=== PATIENT | female | born 1975 | race American Indian/Alaskan Native ===

== ENCOUNTER 2019-09-06 07:59 | Observation (INO) | payer OTHER ==
--- NOTE | 2019-08-31 09:15 | History and Physical Report ---
History of Present Illness Date of examination: 08/31/19 Date of admission: 09/06/2019 Chief complaint: heavy painful periods History of present illness: Visit Type: Pre-Op CC: pre op. History of Present Illness: pt presents for pre op visit: LAVH, Bilateral salpingectomy................................................................... ...Myra Singh August 31, 2019 9:13 AM All risk/benefits/alternatives were d/w pt and questions were addressed and answered. Consents signed and placed on the chart. Vital Signs: Patient Profile: 44 Years Old Female LMP: 08/11/2019 Height: 61.0 inches (154.94 cm) Weight: 153 pounds BMI: 28.91 BP sittin / 88 (left arm) Menstrual History: LMP (date): 08/11/2019 Current Method of Contraception: BTL Date of Last Pap Smear: 11/04/2018 Past History : 5 Term Births: 3 Premature Births: 1 Living Children: 3 Para: 4 Mult. Births: 0 Prev : 3 Aborta: 1 Elect. Ab: 1 Spont. Ab: 0 Ectopics: 0 # 1 Delivery date: 09/28/1996 Delivery type: EAB Comments: year known, no complications # 2 Delivery date: 05/01/2006 labor: no Delivery type: Anesthesia type: epidural Delivery location: [facility] Sex: Male Comments: 28 wks IUFD # 3 Delivery date: 10/13/2007 Weeks Gestation: 39 labor: no Delivery type: Anesthesia type: spinal Delivery location: [facility] Sex: Female weight: 6-5 Name: Kandy Comments: pcs d/t myomectomy, no complications # 4 Delivery date: 04/06/2009 Weeks Gestation: 39 Delivery type: Delivery location: [facility] Sex: male weight: 6.88 Name: Sukhwinder Comments: Treated with Lovenox during # 5 Delivery date: 09/28/2012 Weeks Gestation: 38 Delivery type: Delivery location: [place] [facility] Sex: Male weight: 8-4 Name: Chris Comments: With BTL 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 of genital herpes: yes Partner hx. of genital herpes: no Rash/viral illness since LMP: no Hx of STD: hsv Active Medications (reviewed today): IRON () VITAMINS D () Current Allergies (reviewed today): * BACTRIM (Critical) Past Medical History: Reviewed history from 02/27/2012 and no changes required: fibroids antiphospholipd syndrome- on lovanx last Past Surgical History: Reviewed history from 05/27/2019 and no changes required: myomectomy (04/06/2009) x3 last with BTL Liposuction (2012) Tubal Ligation Family History Summary: Reviewed history Last on 05/27/2019 and no changes required:08/31/2019 General Comments - FH: FH fibroids Family History of Diabetes--pgm No Family History of Breast Cancer No Family History of Colon Cancer No Family History of Hypertension No Family History of Ovarvian Cancer Social History: Reviewed history from 10/02/2016 and no changes required: Patient is no e/t/d Smoking History: Patient has never smoked. Risk Factors: Smoked Tobacco Use: Never smoker Smokeless Tobacco Use: Never Drug use: no HIV high-risk behavior: no Alcohol use: yes Exercise: yes Seatbelt use: 100 % PAP Smear History: Date of Last PAP Smear: 11/04/2018 Review of Systems General Denies fever, chills, sweats, anorexia, fatigue, weakness, malaise, weight loss and sleep disorder. Denies nausea, vomiting, headache, swelling of legs, abdominal pain, vaginal discharge, vaginal bleeding and contractions. Complains of menorrhagia, abnormal vaginal bleeding and painful periods. Denies vaginal discharge, incontinence, dysuria, hematuria, urinary frequency, amenorrhea, pelvic pain, genital sores, decreased libido, painful sex, urinary urgency, hot flashes, vaginal dryness, vaginal itching and vaginal odor. CV Denies chest pains, palpitations, syncope, dyspnea on exertion, orthopnea, PND and peripheral edema. Resp Denies cough, dyspnea at rest, excessive sputum, hemoptysis, wheezing and pleurisy. GI Denies nausea, vomiting, diarrhea, constipation, change in bowel habits, abdominal pain, melena, hematochezia, jaundice, gas/bloating, indigestion/heartburn, dysphagia and odynophagia. Endo Denies cold intolerance, heat intolerance, polydipsia, polyphagia, polyuria and unusual weight change. Breast Denies left breast lump, right breast lump, nipple discharge, bloody discharge from nipple, breast pain, abnormal mammogram and breast enlargement. MS Denies back pain, joint pain, joint swelling, muscle cramps, muscle weakness, stiffness, arthritis, sciatica, restless legs, leg pain at night and leg pain with exertion. Derm Denies rash, itching, dryness and suspicious lesions. Neuro Denies paralysis, paresthesias, headache, seizures, tremors, vertigo, t ransient blindness, frequent falls, frequent headaches and difficulty walking. Psych Denies depression, anxiety, irritability and mood swings. Eyes Denies blurring, diplopia, irritation, discharge, vision loss, eye pain and photophobia. ENT Denies earache, ear discharge, tinnitus, decreased hearing, nasal congestion, nosebleeds, sore throat and hoarseness. Allergy Denies urticaria, allergic rash, hay fever and recurrent infections. Heme Denies abnormal bruising, bleeding and enlarged lymph nodes. [Labs In-House] Physical Exam Appearance: well developed, well nourished, no acute distress Other Exams Lungs: no rales, rhonchi, or wheezes Heart: S1, S2, no murmur, rub, or gallop Abdomen: soft, non-tender, no masses, bowel sounds normal Extremities: normal alignment, no joint enlargement, crepitus, masses or tenderness; normal tone and strength Genitourinary Exam Comments: deferred until EUA Past History Past Medical History: other (antiphospholipid antibody syndrome) Past Surgical History: section (x3), other (BTL, liposuction) GEODETIC ADVISOR History: other (see hpi) Family/Genetic History: other (see hpi) Social history: no significant social history, Review of Systems All systems: negative - Physical Exam Cardiovascular: Normal S1, Normal S2 Lungs: Positive: Clear to auscultation, Normal air movement Abdomen: Positive: normal appearance, soft. Negative: distention, tenderness, guarding Genitourinary (Female): Positive: other (deferred) Extremities: Positive: normal. Negative: tenderness, edema Results All other labs normal. Assessment and Plan - Patient Problems (1) Menorrhagia with regular cycle Status: Acute Plan to address problem: -to OR for LAVH with BS -Risk, benefits and alternatives were d/wpt and questions were addressed and answered. -consents signed and given to pt to bring to pre op appointment at hospital. (2) Secondary dysmenorrhea Status: Acute
[2019-08-31 11:11] LABS: Basophils % (Auto) 1.2 % (0.0-1.8); Eosinophils % (Auto) 1.1 % (0.0-4.3); Hematocrit 38.7 % (30.3-42.9); Hemoglobin 12.9 gm/dl (10.1-14.3); Lymphocytes # (Auto) 1.4 K/mm3 (1.2-5.4); Lymphocytes % (Auto) 36.2 % (13.4-35.0); Mean Corpuscular HGB Conc 33 % (30-34); Mean Corpuscular Volume 93 fl (79-97); Monocytes # (Auto) 0.4 K/mm3 (0.0-0.8); Monocytes % (Auto) 11.6 % (0.0-7.3); Platelet Count 261 K/mm3 (140-440); Red Blood Count 4.18 M/mm3 (3.65-5.03); Red Cell Distribution Width 14.1 % (13.2-15.2)
--- NOTE | 2019-08-31 11:21 | Anesthesia Consultation ---
Anesthesia Consult and Med Hx Date of service: 09/06/19 - Airway Anesthetic Teeth Evaluation: Good ROM Head & Neck: Adequate Mental/Hyoid Distance: Adequate Mallampati Class: Class II Intubation Access Assessment: Good - Pulmonary Exam CTA: Yes - Cardiac Exam Cardiac Exam: RRR - Pre-Operative Health Status ASA Pre-Surgery Classification: ASA1 Proposed Anesthetic Plan: General Nerve Block: TAP post op if converts to open - Pulmonary Hx Smoking: No Hx Respiratory Symptoms: No - Cardiovascular System Hx Hypertension: No Hx Heart Attack/AMI: No - Central Nervous System CVA: No - Gastrointestinal Hx Gastroesophageal Reflux Disease: No - Endocrine Hx Renal Disease: No Hx Liver Disease: No Hx Insulin Dependent Diabetes: No Hx Non-Insulin Dependent Diabetes: No Hx Thyroid Disease: No - Hematic Hx Anemia: Yes (no hx transfusions) - Other Systems Hx Obesity: No - Additional Comments Anesthesia Medical History Comments: No hx anesthetic complications. Consented for postop TAP block if procedure converts to open.
[2019-08-31 11:30] LABS: BUN/Creatinine Ratio 17; Blood Urea Nitrogen 10 mg/dL (7-17); Calcium 9.2 mg/dL (8.4-10.2); Hemolysis Index 21
[~2019-09-06 07:59] MED LIST: BUPIVACAINE/PF (0.5%) 5 MG/1 ML 30 ML VIAL INFILTRATI ONE; GABAPENTIN 300 MG CAP PO NR; LACTATED RINGERS 1,000 ML IV SCH; ceFAZolin/Water 2 GM/20 ML 2 GM/20 ML SYRINGE IV NR
[2019-09-06] MEDS ORDERED: ACETAMINOPHEN 500 MG TAB PO NR (09:30)
[2019-09-06] MEDS ORDERED: ONDANSETRON 4 MG/2 ML INJ IV PRN ×2 (09:37→14:08)
--- NOTE | 2019-09-06 09:38 | Anesthesia Day of Surgery ---
Anesthesia Day of Surgery - Day of Surgery Patient Examined: Yes Patient H&P Reviewed: Yes Patient is NPO: Yes
[2019-09-06] MEDS: MIDAZOLAM 2 MG/2 ML INJ IV NR ×2 (09:55→10:44)
[2019-09-06] MEDS ORDERED: METHYLENE BLUE 50 MG/10 ML AMP ONE (09:56)
[2019-09-06] MEDS ORDERED: VASOPRESSIN 20 UNIT/1 ML INJ ONE (09:56)
[2019-09-06] MEDS ORDERED: SODIUM CHLORIDE 0.9% 100 ML ONE (09:56)
[2019-09-06] MEDS ORDERED: BUPIVACAINE/PF (0.5%) 5 MG/1 ML 30 ML VIAL INFILTRATI ONE (09:56)
[2019-09-06] MEDS ORDERED: NEOSTIGMINE 10MG/10 ML INJ MDV ONE (10:00)
[2019-09-06] MEDS ORDERED: PROPOFOL 200 MG/20 ML VIAL IV ONE (10:00)
[2019-09-06] MEDS ORDERED: ROCURONIUM 50 MG/5 ML INJ IV ONE (10:00)
[2019-09-06] MEDS ORDERED: fentaNYL 250 MCG/5 ML INJ ONE (10:00)
[2019-09-06] MEDS ORDERED: KETAMINE/STERILE WATER 50 MG/ML SYRINGE ONE (10:00)
[2019-09-06] MEDS ORDERED: ESMOLOL 100 MG/10 ML INJ IV ONE (10:00)
[2019-09-06] MEDS ORDERED: LIDOCAINE MPF (2%) 20 MG/1 ML VIAL 5 ML ONE (10:00)
[2019-09-06] MEDS ORDERED: GLYCOPYRROLATE 0.4 MG/2 ML INJ ONE (10:00)
[2019-09-06] MEDS ORDERED: dexAMETHasone 20 MG/5 ML VIAL ONE (10:00)
[2019-09-06] MEDS ORDERED: ONDANSETRON 4 MG/2 ML INJ ONE (10:00)
[2019-09-06] MEDS ORDERED: CITRIC ACID-SOD CITRATE 500 ML IV ONE (11:22)
[2019-09-06] MEDS ORDERED: SODIUM CHLORIDE 0.9% IRRIG SOLN 2000 ML IR ONE (11:52)
[2019-09-06] MEDS ORDERED: SODIUM CHLORIDE 0.9% 100 ML IVPB IV ONE (12:31)
[2019-09-06] MEDS ORDERED: VASOPRESSIN 20 UNIT/1 ML INJ IM ONE (12:31)
[2019-09-06] MEDS ORDERED: HYDROmorphone 1 MG/1 ML INJ ONE ×2 (12:54→15:42)
[2019-09-06] MEDS ORDERED: fentaNYL 100 MCG/2 ML INJ ONE (13:23)
[2019-09-06] MEDS ORDERED: ACETAMINOPHEN 325 MG TAB PO PRN (14:08)
--- NOTE | 2019-09-06 14:18 | Operative Report ---
Operative Report Operative Report: Date of procedure: 09/06/2019 Pre-operative diagnosis: Menorrhagia Dysmenorrhea Post-operative diagnosis: Same Procedure name(s): Laparoscopic assisted vaginal hysterectomy Left salpingectomy Surgeon: Shara Mina MD Lamina Searcher: Dr. Angela Garcia Anesthesia: Gen. endotracheal anesthesia EBL: 450 mL Urine output: 150 mL of clear urine out at the end of the procedure Fluids: 1300 mL Cell Saver: 225 milliliters Findings: Grossly normal ovaries bilaterally. Enlarged uterus likely adenomyos is present. Right fallopian tube was not seen in its entirety therefore salpingectomy was not done. Left fallopian tube was seen clearly and salpingectomy was done. Indications: Patient with a history of menorrhagia and dysmenorrhea. Patient desired definitive therapy. Patient was consented for hysterectomy and any other indicated procedures. As well as for salpingectomy. All risks benefits and alternatives were discussed with the patient. Consents were signed and placed on the chart. Procedure: Patient was taken to the operating room where she was placed under general endotracheal anesthesia. . She was then prepped and draped in sterile fashion. Love catheter was placed at this time It was at this point that the medium V care uterine manipulator was placed inside of the uterus after the uterus was sounded to approximately 10 cm. Attention was then turned to the umbilicus in which a supraumbilical incision was made. Under direct visualization the 5 mm trocar was placed inside the peritoneum the peritoneum was then insufflated. As at this point that the laparoscopic portion of the procedure was performed. 1 lateral and 1 suprabubic 5 mm ports were also placed under direct visualization. Using the tripolar instrument the upper pedicles were cauterized and transected to the including round ligament with excellent hemostasis noted bilaterally. Attention was then turned vaginally. A weighted speculum was placed into the vagina and the cervix was grasped with a single-tooth tenaculum 2. The cervix was then injected circumferentially with Pitressin. The cervix was then circumferentially incised with the scalpel and the bladder dissected off of the pubovesical cervical fascia anteriorly with a sponge stick and Metzenbaum scissors. The same procedure was performed posteriorly and the posterior cul-de-sac was entered into sharply without difficulty. At this point a Paras Clamp was placed over the uterosacral ligaments on either side. These were then transected and suture ligated with 0 Vicryl. Hemostasis was assured. The cardinal ligaments were then clamped on both sides transected and suture ligated in similar fashion. The uterine arteries were then serially clamped with Paras clamps transected and suture ligated on both sides. Excellent hemostasis was visualized. After it was clear that the uterus had been completely from all pedicles the uterus was removed vaginally intact with cervix intact. The vaginal cuff angles were closed with figure of 8 stitches of 0 Vicryl on both sides. The peritoneum was incorporated in the stitching of the vaginal cuff. A series of interrupted figure of 8 sutures using 0 Vicryl were used to close the entire vaginal cuff. Excellent hemostasis was noted. The vagina was then irrigated copiously. Attention was then turned laparoscopically at which time. Again all pedicles were noted to be hemostatic. Shannan was placed along the vaginal cuff and upper pedicles. Excellent hemostasis was noted. All instruments were then removed from the abdomen and the vagina. All gas was released from the abdomen. The abdominal incisions were closed using 4-0 Monocryl. All of the abdominal incisions were injected with Marcaine without epi. Patient tolerated the procedure well sponge lap and needle counts were all correct 3 the patient was taken to the recovery room awake and in stable condition.
[2019-09-06] MEDS ORDERED: KETOROLAC 30 MG/1 ML INJ ONE (15:22)
[2019-09-06] MEDS: KETOROLAC 30 MG/1 ML INJ IV SCH ×2 (15:22→22:15)
[2019-09-06] MEDS: HYDROmorphone 1 MG/1 ML INJ IV PRN ×2 (15:43→15:55)
[2019-09-06] MEDS: ceFAZolin/NS 1 GM/50 ML 1 GM/50 ML BAG IV SCH (17:30)
[2019-09-06] MEDS: MORPHINE 2 MG/1 ML INJ IV PRN (17:40)
--- NOTE | 2019-09-06 17:45 | Progress Note ---
Assessment and Plan - Patient Problems (1) Menorrhagia with regular cycle Current Visit: No Status: Acute (2) Secondary dysmenorrhea Current Visit: No Status: Acute (3) S/P laparoscopic assisted vaginal hysterectomy (LAVH) Current Visit: Yes Status: Acute Plan to address problem: -DOING WELL -ROUTINE POST OP CARE -ADAT Subjective Date of service: 09/06/19 Principal diagnosis: POD#0 s/p LAVH, ANTHONY,LS Interval history: Pt doing well. Findings of procedure were d/w pt and questions were addressed and answered. Pt states pain is well controlled at this time. Objective - Constitutional Vitals: Vital Signs - 12hr 09/06/19 09/06/19 09/06/19 09:04 14:20 14:25 Temperature 99.2 F 97 F L Pulse Rate 83 89 92 H Respiratory 20 12 16 Rate Blood Pressure 119/77 142/87 142/80 O2 Sat by Pulse 100 100 100 Oximetry 09/06/19 09/06/19 09/06/19 14:30 14:35 14:45 Temperature Pulse Rate 89 79 69 Respiratory 11 L 12 11 L Rate Blood Pressure 133/82 137/90 152/83 O2 Sat by Pulse 100 100 100 Oximetry 09/06/19 09/06/19 09/06/19 15:00 15:15 15:22 Temperature 97.2 F L Pulse Rate 79 80 Respiratory 12 13 12 Rate Blood Pressure 147/82 156/81 O2 Sat by Pulse 100 100 Oximetry 09/06/19 09/06/19 09/06/19 15:30 15:43 15:45 Temperature Pulse Rate 75 65 Respiratory 112 H 12 11 L Rate Blood Pressure 159/86 128/80 O2 Sat by Pulse 100 100 Oximetry 09/06/19 09/06/19 09/06/19 15:52 15:54 15:55 Temperature Pulse Rate Respiratory 20 12 12 Rate Blood Pressure O2 Sat by Pulse Oximetry 09/06/19 09/06/19 16:00 17:40 Temperature Pulse Rate 66 Respiratory 12 20 Rate Blood Pressure 131/86 O2 Sat by Pulse 100 Oximetry General appearance: Present: no acute distress - Respiratory Respiratory effort: normal Respiratory: bilateral: CTA - Breasts Breasts: deferred - Gastrointestinal General gastrointestinal: Present: soft, non-tender, non-distended Rectal Exam: deferred - Genitourinary Female genitourinary: deferred - Neurologic Neurologic: CNII-XII intact, moves all extremities - Psychiatric Psychiatric: appropriate mood/affect - Labs CBC & Chem 7: 08/31/19 10:40 08/31/19 10:40 Medications & Allergies - Medications Allergies/Adverse Reactions: Allergies sulfamethoxazole [From Bactrim] Allergy (Verified 08/31/19 10:04) Unknown trimethoprim [From Bactrim] Allergy (Verified 08/31/19 10:04) Unknown Home Medications: Home Medications Medication Instructions Recorded Confirmed Last Taken Type Ergocalciferol [Vitamin D2] 1 cap PO QWEEK 08/31/19 08/31/19 2 Weeks Ago History ~08/23/19 Ferrous Sulfate [Iron 325 MG] 325 mg PO DAILY 08/31/19 08/31/19 2 Weeks Ago History ~08/23/19 Docusate Sodium [Colace] 100 mg PO BID PRN #60 capsule 09/06/19 Unknown Rx Ibuprofen [Motrin 800 MG tab] 800 mg PO Q8HR PRN #30 tablet 09/06/19 Unknown Rx oxyCODONE /ACETAMINOPHEN [Percocet 1 tab PO Q4HR #30 tab 09/06/19 Unknown Rx 5/325] Active Medications: Generic Name Dose Route Start Last Admin Trade Name Freq PRN Reason Stop Dose Admin Acetaminophen 650 mg 09/06/19 14:08 Tylenol PO Q4H PRN Pain, Mild (1-3) Acetaminophen/Hydrocodone Bitart 2 each 09/07/19 08:00 Neola 5/325 PO Q4HR PRN Pain, Moderate (4-6) Hydromorphone HCl 0.5 mg 09/06/19 09:37 09/06/19 15:55 Dilaudid IV 09/06/19 20:00 0.5 mg Q10MIN PRN Administration Pain , Severe (7-10) Lactated Ringer's 1,000 mls @ 100 mls/hr 09/06/19 06:00 09/06/19 09:40 Lactated Ringers IV 100 mls/hr DIRECT BLANKA Administration Cefazolin Sodium 1 gm in 50 mls @ 100 mls/hr 09/06/19 18:00 09/06/19 17:30 Ancef/Ns 1 Gm/50 Ml IV 09/07/19 02:29 100 mls/hr Q8H BLANKA Administration Protocol Ketorolac Tromethamine 30 mg 09/06/19 15:00 09/06/19 15:22 Toradol IV 09/11/19 14:59 30 mg Q6H BLANKA Administration Morphine Sulfate 2 mg 09/06/19 14:08 09/06/19 17:40 Morphine IV 09/07/19 08:00 2 mg Q4H PRN Administration Pain, Moderate (4-6) Ondansetron HCl 4 mg 09/06/19 14:08 Zofran IV Q8H PRN Nausea And Vomiting
--- NOTE | 2019-09-06 17:49 | Post Anesthesia Evaluation ---
- Post Anesthesia Evaluation Patient Participated: Yes Airway Patent: Yes Stable Respiratory Function: Yes Nausea/Vomiting: No Temp > 96.8F: Yes Pain Manageable: Yes Adequeate Hydration: Yes Anesthesia Complications: No Block Receding Appropriately: Not Applicable Patient on Ventilator: No
[2019-09-07] MEDS: MORPHINE 2 MG/1 ML INJ IV PRN (00:28)
[2019-09-07] MEDS: ceFAZolin/NS 1 GM/50 ML 1 GM/50 ML BAG IV SCH (01:31)
[2019-09-07 04:10] LABS: Hemoglobin 11.8 gm/dl (10.1-14.3)
[2019-09-07] MEDS: KETOROLAC 30 MG/1 ML INJ IV SCH (06:56)
[2019-09-07] MEDS ORDERED: HYDROcodone/ACETAMINOPHEN 5-325 MG TAB PO PRN (08:00)
--- NOTE | 2019-09-07 09:04 | Progress Note ---
Assessment and Plan - Patient Problems (1) Menorrhagia with regular cycle Current Visit: No Status: Acute (2) Secondary dysmenorrhea Current Visit: No Status: Acute (3) S/P laparoscopic assisted vaginal hysterectomy (LAVH) Current Visit: Yes Status: Acute Plan to address problem: -routine post op care -d/c home this pm when tolerates regular diet and spontaneously voids. Subjective - Subjective Date of service: 09/07/19 Principal diagnosis: POD#1 s/p LAVH, ANTHONY,LS Interval history: Pt doing well stating that she is passing gas and tolerated a regular diet over night. The reed was removed this am at 0700 with good UOP charted while reed was in place. Pt desires d/c home. Advised will d/c home when spotaneously voids and tolerates regular diet. Patient reports: appetite normal, pain well controlled, flatus, no dizzy ambulation Objective - Vital Signs Latest vital signs: Vital Signs Temp Pulse Resp BP Pulse Ox 09/07/19 05:25 98.7 F 89 20 115/71 98 09/07/19 01:15 98.9 F 90 20 121/66 99 09/06/19 20:15 97.9 F 82 18 146/89 100 09/06/19 17:40 20 09/06/19 16:00 66 12 131/86 100 09/06/19 15:55 12 09/06/19 15:54 12 09/06/19 15:52 20 09/06/19 15:45 65 11 L 128/80 100 09/06/19 15:43 12 09/06/19 15:30 75 112 H 159/86 100 09/06/19 15:22 12 09/06/19 15:15 97.2 F L 80 13 156/81 100 09/06/19 15:00 79 12 147/82 100 09/06/19 14:45 69 11 L 152/83 100 09/06/19 14:35 79 12 137/90 100 09/06/19 14:30 89 11 L 133/82 100 09/06/19 14:25 92 H 16 142/80 100 09/06/19 14:20 97 F L 89 12 142/87 100 09/06/19 09:04 99.2 F 83 20 119/77 100 Intake and Output 09/06/19 09/07/19 09/07/19 22:59 06:59 14:59 Intake Total 50 480 Output Total 490 1500 Balance -440 -1020 Intake: IV 50 ANCEF/NS 1 GM/50 ML 1 gm 50 In 50 ml @ 100 mls/hr IV Q8H [facility] Rx#:[id number] Oral 240 Intake, Free Water 240 Output: Urine 490 1500 Indwelling Catheter 700 Uretheral (Reed) 245 Void 800 Other: Total, Intake Amount 240 Total, Output Amount 700 Voiding Method Indwelling Catheter - Exam Breasts: Present: normal Cardiovascular: Present: Regular rate, Normal S1, Normal S2 Lungs: Present: Clear to auscultation, Normal air movement Abdomen: Present: normal appearance, soft, normal bowel sounds. Absent: distention, tenderness, guarding Uterus: Present: other (abscent) Extremities: Present: normal. Absent: tenderness, edema Deep Tendon Reflex Grade: Normal +2
--- NOTE | 2019-09-07 09:07 | Discharge Summary ---
Providers - Providers Date of Admission: 09/06/19 14:09 Date of discharge: 09/07/19 Attending physician: DAISHA CHOUDHURY Primary care physician: ANA LAURA RODRIGUEZ Hospitalization Reason for admission: other (LAVH WITH BS) Procedure: other (LAVH WITH RS ANTHONY) Procedure details: SEE OP NOTE Incision: normal, dry, intact (open to air) Hospital course: Pt admitted for above stated procedure. Procedure was not complicated. Pt had had routine post op care that also has not been complicated. Will d/c home when tolerates regular diet and spontaneously voids. Condition at discharge: Good Disposition: DC-01 TO HOME OR SELFCARE - Discharge Diagnoses (1) Menorrhagia with regular cycle Status: Acute (2) Secondary dysmenorrhea Status: Acute (3) S/P laparoscopic assisted vaginal hysterectomy (LAVH) Status: Acute Plan - Discharge Medications Prescriptions: Docusate Sodium [Colace] 100 mg PO BID PRN #60 capsule PRN Reason: Constipation Ibuprofen [Motrin 800 MG tab] 800 mg PO Q8HR PRN #30 tablet PRN Reason: Pain, Moderate (4-6) oxyCODONE /ACETAMINOPHEN [Percocet 5/325] 1 tab PO Q4HR #30 tab - Provider Discharge Summary Activity: routine, no sex for 6 weeks, no heavy lifting 4 weeks, no strenuous exercise Additional instructions: [] Smoking cessation referral if applicable(refer to patient education folder for contact #) [] Refer to [facility]'s [facility] Booklet Call your doctor immediately for: * Fever > 100.5 * Heavy vaginal bleeding ( >1 pad per hour) * Severe persistent headache * Shortness of breath * Reddened, hot, painful area to leg or breast * Drainage or odor from incision. * Keep incision clean and dry at all times and follow doctor's instructions regarding bathing/showering - Follow up plan Follow up: ANA LAURA RODRIGUEZ MD [Primary Care Provider] - 7 Days
[2019-09-07 14:07] VITALS: BP 129/77
== END 2019-09-07 15:00 | disposition home or self-care (01) ==
LOC: OR 07:59 → OB 14:09
PROVIDERS: ADMIT Obstetrics & Gynecology; ATTEND Obstetrics & Gynecology
DX: N92.0 Excessive and frequent menstruation with regular cycle (principal); N94.5 Secondary dysmenorrhea; Z98.891 History of uterine scar from previous surgery; Z98.51 Tubal ligation status
CPT/HCPCS: 36415; 58554; 80048; 84703; 85014; 85018; 85025; 86850; 86900; 86901; 88307; 96365; 96366; 96375; 96376; A4217; G0378; J0690; J1100; J1170; J1885; J2250; J2270; J2405; J2704; J2710; J3010; J7120; Q9968; 88302